=== PATIENT | female | born 1945 | race Caucasian/White ===

== ENCOUNTER → 2023-08-16 | Outpatient (CLI) | payer MEDICARE ==
[2023-08-16 12:32] LABS: BASO # 0.1 10*3/uL (0.0-0.1); BASO % 1.4 % (0.0-1.0); EOS # 0.8 10*3/uL (0.0-0.4); EOS % 13.8 % (1.0-4.0); HEMATOCRIT 41.1 % (37.0-47.0); LYMPH # 1.8 10*3/uL (1.3-4.4); LYMPH % 32.9 % (27.0-41.0); MEAN CELL VOLUME 91.9 fl (81.0-99.0); MEAN CORPUSCULAR HGB 30.2 pg (27.0-31.0); MEAN CORPUSCULAR HGB CONC 32.8 g/dl (33.0-37.0); MEAN PLATELET VOLUME 10.2 fl (9.6-12.3); MONO # 0.5 10*3/uL (0.1-1.0); MONO % 8.6 % (3.0-9.0); NEUT # 2.4 10*3/uL (2.3-7.9); NEUT % 42.9 % (47.0-73.0); PLATELET COUNT AUTOMATED 175 10*3/uL (130-400); RED BLOOD COUNT 4.47 10*6/uL (4.10-5.10); RED CELL DISTRI WIDTH 13.8 % (0-14.5); WHITE BLOOD COUNT 5.6 10*3/uL (4.8-10.8)
[2023-08-16 12:56] LABS: ALKALINE PHOSPHATASE 44 U/L (46-116); BUN 9 mg/dl (9-23); CHLORIDE 109 mmol/L (98-107); CHOLESTEROL 128 mg/dL (<200); LDL CHOLESTEROL 51 mg/dL (9-159); POTASSIUM 4.7 mmol/L (3.4-5.1); SGPT/ALT 12 U/L (5-49); TOTAL PROTEIN 6.3 gm/dL (6.0-8.0); TRIGLYCERIDES 84 mg/dl (<150)
== END | disposition home or self-care (01) ==
LOC: RESCLI 10:34
PROVIDERS: Student in an Organized Health Care Education/Training Program; ATTEND Student in an Organized Health Care Education/Training Program
DX: K58.9 Irritable bowel syndrome, unspecified (principal); I10 Essential (primary) hypertension; E78.5 Hyperlipidemia, unspecified; J44.9 Chronic obstructive pulmonary disease, unspecified; E55.9 Vitamin D deficiency, unspecified; N32.81 Overactive bladder; F32.9 Major depressive disorder, single episode, unspecified; I25.10 Atherosclerotic heart disease of native coronary artery without angina pectoris; K21.9 Gastro-esophageal reflux disease without esophagitis; Z88.8 Allergy status to other drugs, medicaments and biological substances; Z88.2 Allergy status to sulfonamides; Z91.048 Other nonmedicinal substance allergy status; Z82.49 Family history of ischemic heart disease and other diseases of the circulatory system; Z98.890 Other specified postprocedural states; Z79.899 Other long term (current) drug therapy